=== PATIENT | male | born 1945 | race Hispanic/Latino ===

== ENCOUNTER 2024-03-30 07:57 | Outpatient (CLI) | payer MEDICARE ==
[2024-03-30 09:03] LABS: #Basophils 0.04 10x3/uL (0.0-0.2); #Eosinphils 0.35 10x3/uL (0.0-0.5); #Neutrophils 3.61 10x3/uL (1.5-8.4); %Basophils 0.6 % (0.0-2.0); %Eosinophils 5.5 % (0.0-6.0); %Lymphocytes 28.7 % (18.0-47.0); %Monocytes 7.9 % (0.0-10.0); %Neutrophils 56.8 % (40.0-75.0); Hematocrit 43.8 % (38.8-50.0); Hemoglobin 15.6 g/dL (13.5-17.5); Mean Corpuscular HGB CONC 35.6 g/dL (32.0-36.0); Mean Corpuscular Hemoglobin 32.4 pg (27.0-33.0); Mean Corpuscular Volume 91.1 fl (81.2-95.1); Mean Platelet Volume 9.4 fl (7.4-10.4); Platelet Count 230 10x3/uL (150-450); RBC Distribution Width 12.8 % (11.5-14.5); Red Blood Cell (RBC) Count 4.81 10x6/uL (4.32-5.72); White Blood Cell (WBC) Count 6.4 10x3/uL (3.5-10.5)
== END 2024-03-30 07:58 | disposition home or self-care (01) ==
LOC: LABBT 07:57
PROVIDERS: ATTEND Orthopaedic Surgery Hand Surgery
DX: Z01.818 Encounter for other preprocedural examination (principal); M65.842 Other synovitis and tenosynovitis, left hand; M60.242 Foreign body granuloma of soft tissue, not elsewhere classified, left hand
CPT/HCPCS: 85025; 93005; 93010